=== PATIENT | female | born 1950 | race Hispanic/Latino ===

== ENCOUNTER 2017-10-23 11:17 | Emergency (ER) | payer MEDICARE ==
[2017-10-23] MEDS ORDERED: ZOFRAN IV ONE (11:19)
[2017-10-23 11:25] VITALS: BP 151/46
--- NOTE | 2017-10-23 11:29 | Emergency Department Report ---
HPI - General Time Seen by Provider: 10/23/17 11:19 - HPI HPI: Room 23 The patient is a 67-year-old female presenting with a chief complaint of "overdose." Per EMS they were called to the home of the patient secondary to overdose. EMS states when they arrived and found the patient with decreased responsiveness. The patient's son stated that the patient had taken 40 mg of methadone and the methadone did not belong to the patient. No further history was given. EMS administered Narcan 2 mg IV and states the patient became more alert and responsive. The patient is awake in the emergency department and answers questions. When asked what happened the patient replies "I don't know. " The patient states she is allergic to clindamycin. There is no suicidal ideation and the patient's son is at bedside confirming this. The son states that the patient took what he estimates to be approximately 40 mg of his methadone. He states that the patient has chronic pain from multiple musculoskeletal sources Location: Mental state, see above Duration: [See above] Quality: Decreased responsiveness Severity: Moderate Modifying factors: [see above] Context: [see above] Mode of transportation: [not driving] ED Past Medical Hx - Past Medical History Additional medical history: Restless leg syndrome, fibromyalgia, cardiac valvular stenosis (patient unaware which valve) - Family History Family history: no significant - Social History Substance Use Type: Other (methadone) ED Review of Systems ROS: Stated complaint: OVERDOSE Other details as noted in HPI Comment: Unobtainable due to pts medical conditions Physical Exam - Physical Exam Physical Exam: GENERAL: The patient is well-developed well-nourished female lying on stretcher not appearing to be in acute distress. [] HEENT: Normocephalic. Atraumatic. Extraocular motions are intact. Patient has moist mucous membranes. NECK: Supple. Trachea midline CHEST/LUNGS: Clear to auscultation. There is no respiratory distress noted. HEART/CARDIOVASCULAR: Regular. There is no tachycardia. There is no gallop rub or murmur. ABDOMEN: Abdomen is soft, nontender. Patient has normal bowel sounds. There is no abdominal distention. SKIN: There is no rash. There is no edema. There is no diaphoresis. NEURO: The patient is awake and alert. The patient is cooperative. The patient moves all extremities well. The patient has normal speech MUSCULOSKELETAL: There is no evidence of acute injury. ED Medical Decision Making - Lab Data Result diagrams: 10/23/17 11:30 10/23/17 11:30 Laboratory Tests 10/23/17 10/23/17 10/23/17 11:30 11:30 11:30 WBC 7.2 RBC 4.41 Hgb 11.0 Hct 35.9 MCV 81 MCH 25 L MCHC 31 RDW 17.7 H Plt Count 287 Lymph % (Auto) 19.3 [place] % (Auto) 3.1 Eos % (Auto) 2.1 Baso % (Auto) 0.8 Lymph # 1.4 [place] # 0.2 Eos # 0.1 Baso # 0.1 Seg Neutrophils % 74.7 H Seg Neutrophils # 5.4 Sodium 141 Potassium 4.5 Chloride 103.7 Carbon Dioxide 20 L Anion Gap 22 BUN 13 Creatinine 1.0 Estimated GFR 56 BUN/Creatinine Ratio 13 Glucose 302 H Calcium 8.2 L Total Bilirubin 0.20 AST 123 H ALT 34 Alkaline Phosphatase 180 H Ammonia 54.0 Total Creatine Kinase 45 CK-MB (CK-2) 1.2 CK-MB (CK-2) Rel Index 2.6 Troponin T < 0.010 Total Protein 6.2 L Albumin 3.8 L Albumin/Globulin Ratio 1.6 TSH Free T4 Plasma/Serum Alcohol 10/23/17 10/23/17 11:30 11:30 WBC RBC Hgb Hct MCV MCH MCHC RDW Plt Count Lymph % (Auto) [place] % (Auto) Eos % (Auto) Baso % (Auto) Lymph # [place] # Eos # Baso # Seg Neutrophils % Seg Neutrophils # Sodium Potassium Chloride Carbon Dioxide Anion Gap BUN Creatinine Estimated GFR BUN/Creatinine Ratio Glucose Calcium Total Bilirubin AST ALT Alkaline Phosphatase Ammonia Total Creatine Kinase CK-MB (CK-2) CK-MB (CK-2) Rel Index Troponin T Total Protein Albumin Albumin/Globulin Ratio TSH 18.090 H Free T4 0.84 Plasma/Serum Alcohol < 0.01 - EKG Data -: EKG Interpreted by Me EKG shows normal: sinus rhythm Rate: normal - EKG Data When compared to previous EKG there are: previous EKG unavailable Interpretation: nonspecific ST-T wave chung (T-wave inversion in lead 3), other ( there are no ischemic changes seen) - Radiology Data Radiology results: report reviewed (CT head), image reviewed (CT head) CT HEAD WITHOUT CONTRAST: 10/23/17 11:17:00 CLINICAL: Altered mental status. TECHNIQUE: 2.5-mm noncontrast scans. COMPARISON:None FINDINGS: The ventricles and sulci are normal for age.A small chronic left basal ganglia lacunar infarct involving the globus pallidus. No other abnormal density. No mass or mass effect. No hemorrhage, edema or extra-axial collection. The sinuses are clear. Normal orbits and soft tissues. The calvarium and skull base are intact. IMPRESSION: A small chronic left basal ganglia lacunar infarct and otherwise negative. Transcribed By: REF Dictated By: TONY MANDUJANO MD Electronically Authenticated By: TONY MANDUJANO MD Signed Date/Time: 10/23/171204 DD/ 02 TD/TT: 10/23/171204 - Differential Diagnosis opiate overdose, polysubstance abuse, ICH, ACS, rhabdomyolysis Critical care attestation.: If time is entered above; I have spent that time in minutes in the direct care of this critically ill patient, excluding procedure time. ED Disposition Clinical Impression: Methadone overdose, Hyperglycemia Disposition: DC-07 LEFT AGAINST MED ADVICE Is pt being admited?: No Does the pt Need Aspirin: No Condition: Undetermined Time of Disposition: 14:20 (patient refuses venous pH and is leaving AMA)
--- NOTE | 2017-10-23 12:11 | Cat Scan Report ---
CT HEAD WITHOUT CONTRAST: 10/23/17 11:17:00 CLINICAL: Altered mental status. TECHNIQUE: 2.5-mm noncontrast scans. COMPARISON:None FINDINGS: The ventricles and sulci are normal for age.A small chronic left basal ganglia lacunar infarct involving the globus pallidus. No other abnormal density. No mass or mass effect. No hemorrhage, edema or extra-axial collection. The sinuses are clear. Normal orbits and soft tissues. The calvarium and skull base are intact. IMPRESSION: A small chronic left basal ganglia lacunar infarct and otherwise negative.
[2017-10-23 12:14] LABS: Basophils % (Auto) 0.8 % (0.0-1.8); Eosinophils % (Auto) 2.1 % (0.0-4.3); Hematocrit 35.9 % (30.3-42.9); Mean Corpuscular HGB Conc 31 % (30-34); Mean Corpuscular Volume 81 fl (79-97); Platelet Count 287 K/mm3 (140-440); Red Blood Count 4.41 M/mm3 (3.65-5.03); Red Cell Distribution Width 17.7 % (13.2-15.2); White Blood Count 7.2 K/mm3 (4.5-11.0)
[2017-10-23 12:18] LABS: Mean Corpuscular Hemoglobin 25 pg (28-32)
[2017-10-23 12:24] LABS: Creatine Kinase MB 1.2 ng/mL (0.0-4.0)
[2017-10-23 12:26] LABS: Alanine Aminotransferase 34 units/L (7-56); Albumin 3.8 g/dL (3.9-5); Albumin/Globulin Ratio 1.6 %; Alkaline Phosphatase 180 units/L (35-129); BUN/Creatinine Ratio 13; Blood Urea Nitrogen 13 mg/dL (7-17); Calcium 8.2 mg/dL (8.4-10.2); Carbon Dioxide 20 mmol/L (22-30); Creatine Kinase 45 units/L (30-135); Glucose 302 mg/dL (65-100); Total Protein 6.2 g/dL (6.3-8.2)
[2017-10-23 12:27] LABS: Anion Gap 22 mmol/L; Chloride 103.7 mmol/L (98-107); Potassium 4.5 mmol/L (3.6-5.0); Sodium 141 mmol/L (137-145)
[2017-10-23 13:09] LABS: Urine Drugs of Abuse Note Disclamer
[2017-10-23 13:19] LABS: Bacteria,Urine 1+ /HPF (Negative); Bilirubin,Urine NEG (Negative); Blood,Urine SM (Negative); Ketones,Urine NEG (Negative); Leukocyte Esterase,Urine NEG (Negative); Mucus,Urine FEW /HPF; Nitrite,Urine NEG (Negative); Urobilinogen,Urine < 2.0 mg/dL (<2.0)
== END 2017-10-23 15:10 | disposition left against medical advice (07) ==
LOC: ED 11:17
DX: T40.3X1A Poisoning by methadone, accidental (unintentional), initial encounter (principal); F19.10 Other psychoactive substance abuse, uncomplicated; Y92.89 Other specified places as the place of occurrence of the external cause
CPT/HCPCS: 36415; 70450; 80053; 80307; 81001; 82140; 82550; 82553; 84439; 84443; 84484; 85025; 93005; 93010; 96374; 99284; G0480; 80320